=== PATIENT | female | born 1985 | race Caucasian/White ===

== ENCOUNTER 2019-07-05 12:00 | Inpatient (IN) | payer OTHER ==
[~2019-07-05] VITALS: Ht 167.6 cm; Wt 98.9 kg
[2019-07-05 12:31] VITALS: BP 149/99
[2019-07-05] MEDS ORDERED: LACTATED RINGERS 1,000 ML IV SCH (12:40)
[2019-07-05] MEDS ORDERED: LABETALOL 100 MG/20 ML VIAL IVP SCH (12:50)
[2019-07-05 13:59] LABS: BASOPHILS % (AUTO) 0.2 % (0.0-2.0); EOSINOPHILS % (AUTO) 0.4 % (0.0-4.0); HEMATOCRIT 39.8 % (36-48); HEMOGLOBIN 13.4 g/dL (12.0-16.0); LYMPHOCYTES % (AUTO) 21.4 % (20.5-51.1); MEAN CORPUSCULAR HEMOGLOBIN 31 pg (27-31); MEAN CORPUSCULAR HGB CONC 34 g/dL (33-37); MEAN CORPUSCULAR VOLUME 92.5 fL (80-94); MONOCYTES # (AUTO) 0.6 K/uL (0.8-1.0); MONOCYTES % (AUTO) 6.5 % (1.7-9.3); NEUTROPHILS # (AUTO) 6.8 K/uL (1.8-7.7); NEUTROPHILS % (AUTO) 71.5 % (42.2-75.2); PLATELET COUNT (AUTO) 219 K/uL (140-450); RED CELL DISTRIBUTION WIDTH 14.4 % (11.6-13.7); WHITE BLOOD COUNT (AUTO) 9.6 K/uL (4.8-10.8)
[2019-07-05 14:04] LABS: APPEARANCE,URINE CLEAR (CLEAR); BILIRUBIN,URINE NEGATIVE (NEGATIVE); BLOOD, URINE NEGATIVE (NEGATIVE); COLOR,URINE YELLOW (YELLOW); LEUKOCYTE ESTERASE ,URINE 3+ (NEGATIVE); NITRITE, URINE POSITIVE (NEGATIVE); UGLUCOSE NEGATIVE (NEGATIVE)
[2019-07-05 14:27] LABS: RBC,URINE 0-5 /HPF (0-5); WBC,URINE 80-100 /HPF (0-5)
[2019-07-05 14:27] LABS: ALBUMIN 2.3 g/dL (3.4-5.0); ANION GAP 15.7 (8-16); CREATININE 0.5 mg/dL (0.6-1.3); POTASSIUM 3.7 mmol/L (3.5-5.1); TOTAL BILIRUBIN 0.3 mg/dL (0.0-1.0)
[2019-07-05 15:40] LABS: PROTHROMBIN TIME 9.5 secs (10.8-13.4)
[2019-07-05 16:33] LABS: URINE TOTAL PROTEIN 44.6 mg/dL (0-12)
[2019-07-05] MEDS ORDERED: BETAMETH ACET/BETAMETH NA PH 30 MG/5 ML VIAL IM ONE ×2 (17:00→23:08)
[2019-07-05] MEDS ORDERED: MAG SULF 2000 MG/WATER PREMIX 100 ML IV ONE (19:00)
[2019-07-05] MEDS ORDERED: cefTRIAXone 1,000 MG VIAL ONE (20:33)
[2019-07-06] MEDS: MAG SULF 20 GM/H2O PREMIX DRIP 500 ML IV SCH ×3 (05:54→17:06)
--- NOTE | 2019-07-06 08:43 | NUR ---
PATIENT HAS BEEN SCREENED AND CATEGORIZED LOW NUTRITION RISK. PATIENT WILL BE SEEN WITHIN 7 DAYS OF ADMISSION. 07/12/[address]
[2019-07-06] MEDS: NACL 0.9% 1,000 ML IV SCH (17:09)
[2019-07-06] MEDS ORDERED: BETAMETH ACET/BETAMETH NA PH 30 MG/5 ML VIAL IM ONE ×2 (23:39→23:45)
[2019-07-07] MEDS: MAG SULF 20 GM/H2O PREMIX DRIP 500 ML IV SCH ×2 (04:01→14:07)
[2019-07-07] MEDS: NACL 0.9% 1,000 ML IV SCH (04:03)
== END 2019-07-07 22:33 | disposition home or self-care (01) | DRG 566 ==
LOC: MLD 12:00 → OBSVTOIN 18:40 → MFCC 07-06 11:23
PROVIDERS: ADMIT Obstetrics & Gynecology; ATTEND Obstetrics & Gynecology
DX: O23.43 Unspecified infection of urinary tract in pregnancy, third trimester (principal); Z3A.31 31 weeks gestation of pregnancy
CPT/HCPCS: G0378 ×7; 36415; 76805; 76819; 80053; 81001; 82570; 84550; 85025; 85384; 85610; 85730; 86886; 86900; 86901; 87086; 87186; J0696; J0702; J3475; J7060; J7120; Q0092

== ENCOUNTER 2019-07-12 11:34 | Inpatient (IN) | payer OTHER ==
[~2019-07-12] VITALS: Ht 167.6 cm; Wt 97.1 kg
[2019-07-12] MEDS ORDERED: LACTATED RINGERS 1,000 ML IV SCH (12:05)
[2019-07-12] MEDS ORDERED: FERR-252 PO (12:32)
[2019-07-12] MEDS ORDERED: PREN-380 PO (12:32)
[2019-07-12] MEDS ORDERED: ASPI-1884 PO (12:32)
[2019-07-12 13:19] VITALS: BP 157/101
[2019-07-12 13:23] LABS: BASOPHILS % (AUTO) 0.1 % (0.0-2.0); EOSINOPHILS % (AUTO) 0.1 % (0.0-4.0); HEMATOCRIT 37.7 % (36-48); HEMOGLOBIN 12.5 g/dL (12.0-16.0); LYMPHOCYTES # (AUTO) 2.4 K/uL (2.5-16.5); LYMPHOCYTES % (AUTO) 21.8 % (20.5-51.1); MEAN CORPUSCULAR HEMOGLOBIN 31 pg (27-31); MEAN CORPUSCULAR HGB CONC 33 g/dL (33-37); MEAN CORPUSCULAR VOLUME 93.6 fL (80-94); MONOCYTES # (AUTO) 0.8 K/uL (0.8-1.0); MONOCYTES % (AUTO) 7.3 % (1.7-9.3); NEUTROPHILS # (AUTO) 7.8 K/uL (1.8-7.7); NEUTROPHILS % (AUTO) 70.7 % (42.2-75.2); PLATELET COUNT (AUTO) 184 K/uL (140-450); RED BLOOD CELL COUNT(AUTO) 4.02 MIL/uL (4.20-5.40); WHITE BLOOD COUNT (AUTO) 11.1 K/uL (4.8-10.8)
[2019-07-12 13:29] LABS: APPEARANCE,URINE HAZY (CLEAR); BILIRUBIN,URINE NEGATIVE (NEGATIVE); BLOOD, URINE NEGATIVE (NEGATIVE); COLOR,URINE YELLOW (YELLOW); LEUKOCYTE ESTERASE ,URINE NEGATIVE (NEGATIVE); NITRITE, URINE NEGATIVE (NEGATIVE); PH,URINE 6.5 (5.0-9.0); UGLUCOSE NEGATIVE (NEGATIVE)
[2019-07-12] MEDS ORDERED: LABETALOL 100 MG/20 ML VIAL IVP SCH (13:30)
[2019-07-12] MEDS ORDERED: LABETALOL 100 MG/20 ML VIAL ONE (13:31)
[2019-07-12 13:36] LABS: ALBUMIN 2.1 g/dL (3.4-5.0); ANION GAP 16.7 (8-16); CARBON DIOXIDE 19.6 mmol/L (21-32); CREATININE 0.7 mg/dL (0.6-1.3); MAGNESIUM 1.4 mg/dL (1.8-2.4); POTASSIUM 3.3 mmol/L (3.5-5.1); TOTAL BILIRUBIN 0.3 mg/dL (0.0-1.0)
[2019-07-12 13:47] LABS: URIC ACID 5.2 mg/dL (2.6-7.2)
[2019-07-12] MEDS ORDERED: MAG SULF 2000 MG/WATER PREMIX 100 ML IV SCH (14:00)
[2019-07-12 14:27] LABS: PROTHROMBIN TIME 9.7 secs (10.8-13.4)
[2019-07-12] MEDS: MAG SULF 20 GM/H2O PREMIX DRIP 500 ML IV SCH (14:43)
[2019-07-12 16:06] LABS: URINE TOTAL PROTEIN 23.1 mg/dL (0-12)
[2019-07-12] MEDS: LABETALOL 100 MG TAB PO SCH (21:33)
[2019-07-13] MEDS: MAG SULF 20 GM/H2O PREMIX DRIP 500 ML IV SCH ×2 (08:35→10:24)
--- NOTE | 2019-07-13 08:47 | NUR ---
PATIENT HAS BEEN SCREENED AND CATEGORIZED LOW NUTRITION RISK. PATIENT WILL BE SEEN WITHIN 7 DAYS OF ADMISSION. 07/18/[address]
[2019-07-13] MEDS: LABETALOL 100 MG TAB PO SCH (10:21)
[2019-07-13] MEDS ORDERED: PROMETHAZINE 25 MG/ML VIAL IVP PRN (18:45)
[2019-07-13] MEDS ORDERED: MORPHINE PRES FREE 10 MG/10 ML AMP IV ONE (18:49)
[2019-07-13] MEDS ORDERED: ONDANSETRON 4 MG/2 ML VIAL ONE (19:23)
[2019-07-13] MEDS ORDERED: diphenhydrAMINE 50 MG/ML VIAL ONE (19:23)
[2019-07-13] MEDS ORDERED: OXYTOCIN 20 UNITS/LR PREMIX 1,000 ML IV ONE (19:23)
[2019-07-13] MEDS ORDERED: OXYTOCIN 20 UNITS in LACTATED RINGERS 1,000 ML IV SCH ×2 (19:44→20:20)
[2019-07-13] MEDS ORDERED: NALOXONE 0.4 MG/ML VIAL IVP PRN ×2 (19:45)
[2019-07-13] MEDS ORDERED: ONDANSETRON 4 MG/2 ML VIAL IVP PRN (19:45)
[2019-07-13] MEDS ORDERED: KETOROLAC 30 MG/ML VIAL IVP PRN (19:45)
[2019-07-13] MEDS ORDERED: diphenhydrAMINE 50 MG/ML VIAL IVP PRN (19:45)
[2019-07-13] MEDS ORDERED: OXYTOCIN 10 UNITS in LACTATED RINGERS 1,000 ML IV SCH (20:13)
[2019-07-13] MEDS ORDERED: METHYLERGONOVINE 0.2 MG/ML AMP IM PRN (20:15)
[2019-07-13] MEDS ORDERED: MEASLES, MUMPS, AND RUBELLA 1 VIAL SQVAC PRN (20:15)
[2019-07-13] MEDS ORDERED: NIFEdipine 30 MG TABER PO ONE (23:04)
[2019-07-13] MEDS: NIFEdipine 60 MG TABER PO SCH (23:30)
[2019-07-14] MEDS: MAG SULF 20 GM/H2O PREMIX DRIP 500 ML IV SCH ×2 (01:02→10:50)
[2019-07-14 06:19] LABS: BASOPHILS % (AUTO) 0.2 % (0.0-2.0); EOSINOPHILS % (AUTO) 0.3 % (0.0-4.0); HEMATOCRIT 34.4 % (36-48); HEMOGLOBIN 11.3 g/dL (12.0-16.0); LYMPHOCYTES % (AUTO) 17.3 % (20.5-51.1); MEAN CORPUSCULAR HEMOGLOBIN 31 pg (27-31); MEAN CORPUSCULAR HGB CONC 33 g/dL (33-37); MEAN CORPUSCULAR VOLUME 93.6 fL (80-94); MONOCYTES # (AUTO) 0.7 K/uL (0.8-1.0); MONOCYTES % (AUTO) 6.1 % (1.7-9.3); NEUTROPHILS # (AUTO) 8.7 K/uL (1.8-7.7); NEUTROPHILS % (AUTO) 76.1 % (42.2-75.2); PLATELET COUNT (AUTO) 159 K/uL (140-450); RED BLOOD CELL COUNT(AUTO) 3.68 MIL/uL (4.20-5.40); RED CELL DISTRIBUTION WIDTH 14.4 % (11.6-13.7); WHITE BLOOD COUNT (AUTO) 11.4 K/uL (4.8-10.8)
[2019-07-14] MEDS ORDERED: OXYTOCIN 20 UNITS/LR PREMIX 1,000 ML IV ONE (08:51)
[2019-07-14] MEDS: oxyCODONE/APAP 5/325 MG 1 TAB TAB PO PRN ×2 (08:58→16:24)
[2019-07-14] MEDS: NIFEdipine 60 MG TABER PO SCH (10:24)
[2019-07-14] MEDS ORDERED: MORPHINE SULFATE 5 MG/ML VIAL IVP PRN ×2 (18:20→18:45)
[2019-07-14] MEDS ORDERED: IBUPROFEN 800 MG TAB PO SCH (18:20)
[2019-07-14] MEDS ORDERED: IBUPROFEN 800 MG TAB PO PRN (18:25)
[2019-07-14] MEDS ORDERED: MORPHINE SULFATE 4 MG/ML SYR IVP PRN (18:45)
[2019-07-14] MEDS ORDERED: MORPHINE SULFATE 4 MG/ML SYR ONE (18:49)
[2019-07-15] MEDS: oxyCODONE/APAP 5/325 MG 1 TAB TAB PO PRN ×3 (01:19→17:24)
[2019-07-15] MEDS: BISACODYL 10 MG SUPP RC SCH (09:00)
[2019-07-15] MEDS: NIFEdipine 60 MG TABER PO SCH (09:20)
[2019-07-16] MEDS: oxyCODONE/APAP 5/325 MG 1 TAB TAB PO PRN ×2 (03:24→08:04)
[2019-07-16] MEDS: BISACODYL 10 MG SUPP RC SCH (09:27)
[2019-07-16] MEDS: NIFEdipine 60 MG TABER PO SCH (09:29)
[2019-07-16] MEDS ORDERED: CAMERA MC ONE (11:32)
== END 2019-07-16 13:20 | disposition home or self-care (01) | DRG 540 ==
LOC: MLD 11:34 → OBSVTOIN 12:07 → MFCC 21:20
PROVIDERS: ADMIT Obstetrics & Gynecology; ATTEND Obstetrics & Gynecology
PROC: 10907ZC Drainage of Amniotic Fluid, Therapeutic from Products of Conception, Via Natural or Artificial Opening (ICD-10-PCS; 2019-07-13)
PROC: 3E033VJ Introduction of Other Hormone into Peripheral Vein, Percutaneous Approach (ICD-10-PCS; 2019-07-13)
PROC: 3E0234Z Introduction of Serum, Toxoid and Vaccine into Muscle, Percutaneous Approach (ICD-10-PCS; 2019-07-13)
PROC: 10D00Z1 Extraction of Products of Conception, Low, Open Approach (ICD-10-PCS; principal; 2019-07-13 19:00)
DX: O69.81X0 Labor and delivery complicated by cord around neck, without compression, not applicable or unspecified (principal); D62 Acute posthemorrhagic anemia; O34.211 Maternal care for low transverse scar from previous cesarean delivery; O14.94 Unspecified pre-eclampsia, complicating childbirth; O99.02 Anemia complicating childbirth; Z23 Encounter for immunization; Z37.0 Single live birth; Z3A.37 37 weeks gestation of pregnancy
CPT/HCPCS: 36415; 51702; 76815; 80053; 81003; 82570; 83735; 84550; 85025; 85384; 85610; 85730; 86592; 86886; 86900; 86901; 87081; 90715; G0378; J0690; J1200; J1885; J2270; J2405; J2590; J3475; J3490; J7060; J7120; Q0092

== ENCOUNTER 2019-10-12 12:54 | Outpatient (CLI) | payer OTHER ==
[~2019-10-12 12:54] MED LIST: FERR-252 PO; PREN-380 PO
== END 2019-10-12 20:25 | disposition home or self-care (01) ==
LOC: MUS 12:54
PROVIDERS: ATTEND Obstetrics & Gynecology
DX: N83.202 Unspecified ovarian cyst, left side (principal)
CPT/HCPCS: 76856; 93976; Q0092